=== PATIENT | female | born 2000 | race Hispanic/Latino ===

== ENCOUNTER 2020-11-30 08:52 | Emergency (ER) | payer BC ==
[~2020-11-30] VITALS: Ht 152.4 cm; Wt 90.7 kg
[2020-11-30] MEDS ORDERED: NITROFURANTOIN100 MG PO (09:26)
== END 2020-11-30 09:46 | disposition home or self-care (01) ==
LOC: FSED 09:25
DX: R30.0 Dysuria (principal); N39.0 Urinary tract infection, site not specified
CPT/HCPCS: 81003; 81025; 99282